=== PATIENT | female | born 1975 | race Caucasian/White ===

== ENCOUNTER → 2018-06-17 | Outpatient (CLI) | payer OTHER ==
[2018-06-17 11:54] LABS: Basophils % (A) 1 %; Eosinophils # (A) 0.1 k/uL (0-0.7); Eosinophils % (A) 1 %; HCT 38.7 % (34.0-46.0); HGB 11.9 gm/dL (11.4-16.0); Hypochromasia Moderate; Lymphocytes # (A) 1.5 k/uL (1.0-4.8); Lymphocytes % (A) 27 %; MCHC 30.8 g/dL (31.0-37.0); MCV 68.2 fL (80.0-100.0); Mean Platelet Volume 6.7; Microcytosis Marked; Monocytes # (A) 0.2 k/uL (0-1.0); Monocytes % (A) 4 %; Neutrophils # (A) 3.6 k/uL (1.3-7.7); Neutrophils % (A) 65 %; Platelet Count 254 k/uL (150-450); RBC 5.67 m/uL (3.80-5.40); RDW 15.5 % (11.5-15.5); WBC 5.6 k/uL (3.8-10.6)
[2018-06-17 12:26] LABS: Anion Gap 6 mmol/L; Blood Urea Nitrogen 9 mg/dL (7-17); Carbon Dioxide 27 mmol/L (22-30); Chloride 106 mmol/L (98-107); Glucose 96 mg/dL (74-99); Potassium 4.5 mmol/L (3.5-5.1); Sodium 139 mmol/L (137-145)
== END | disposition home or self-care (01) ==
LOC: LABPAT 10:57
PROVIDERS: ATTEND Obstetrics & Gynecology
DX: Z01.812 Encounter for preprocedural laboratory examination (principal); R19.00 Intra-abdominal and pelvic swelling, mass and lump, unspecified site; N92.0 Excessive and frequent menstruation with regular cycle
CPT/HCPCS: 36415; 80051; 82565; 82947; 84520; 85025; 87086

== ENCOUNTER 2018-06-27 06:03 | Day surgery (SDC) | payer OTHER ==
--- NOTE | 2018-06-23 17:17 | HP ---
HISTORY AND PHYSICAL DATE OF SURGERY: 06/27/2016 HISTORY OF PRESENT ILLNESS: The patient is a 42-year-old 3, para 3-0-0-3, who initially presented to the office with a complaint of some fairly long-standing hip and low back pain. She underwent a pelvic exam, at which time her pain was thought to be secondary to an enlarged fibroid uterus. Subsequent pelvic ultrasound demonstrated relatively normal- sized uterus with a roughly 10+ cm simple pelvic cyst filling the entire cul-de-sac behind the uterus. She then underwent MALACHI testing to determine whether there was any risk for malignancy. The testing returned with low risk for malignancy. The architecture on ultrasound was of an entirely simple cyst, with no evidence of any complex components. Given its architecture and negative testing, I am anticipating either a very large paratubal cyst or a simple serous cystadenoma. Regardless, the recommendation has been to have it removed based upon size alone. She also at that time had reported increasingly heavy cycles which are becoming closer together as well, roughly 23 days apart, with bleeding heavy enough to bleed through protection on a regular basis. She does have a tubal ligation in place. We discussed multiple different potential options for treatment, and she has elected to have the least invasive with Da Edy laparoscopic removal of the pelvic mass and diagnostic hysteroscopy with NovaSure endometrial ablation. PAST MEDICAL HISTORY: Significant only for an occasional history of anemia. PAST SURGICAL HISTORY: Significant for a history of appendectomy as well as section x1. She has had no anesthetic concerns. OBSTETRICAL HISTORY: 3, para 3-0-0-3, with two term vaginal deliveries and one section. Method of contraception is tubal ligation. GYNECOLOGIC HISTORY: Unremarkable, with no history of any infections to include STDs. FAMILY HISTORY: Noncontributory. SOCIAL HISTORY: The patient is and is a smoker. She reports occasional alcohol and denies any other social concerns. CURRENT MEDICATIONS: Include Celexa 20 mg daily. ALLERGIES: NO KNOWN DRUG ALLERGIES. REVIEW OF SYSTEMS: Confined to history of present illness. PHYSICAL EXAMINATION: Vital signs are stable. The patient is afebrile. In general, this is a well- developed, mild to moderately obese white female in no acute distress. HEENT demonstrates PERRLA, EOMI. Her oropharynx is clear. NECK: Supple without adenopathy. The thyroid is normal to palpation. Her heart has a regular rhythm and rate without murmur. Her lungs are clear to auscultation bilaterally in all dias. Her back is without spinal or CVA tenderness. Her abdomen is nondistended, has normoactive bowel sounds. It is soft, nontender hepatosplenomegaly or hernias. Her extremities are without any cyanosis, clubbing or edema and are nontender to palpation bilaterally. Pelvic examination demonstrates normal external genitalia and BUS with normal vaginal mucosa and cervix. There is no cervical motion tenderness. Uterus is approximately 5 weeks in size, mid plane, mobile and otherwise normal in shape. Endometrial biopsy performed demonstrates benign pathology and the uterus sounded to 8 cm. The entire area posterior to the uterus is filled with a soft cystic structure and the adnexa are essentially nonpalpable as result. ASSESSMENT AND PLAN: 1. A 10 cm simple pelvic cyst. This may represent either a large paratubal cyst or a serous cystadenoma. In either case, all testing and architecture appear to be benign. We have discussed options for removal and opted to proceed with Da Edy laparoscopic excision. It will likely be placed in a bag and then drained or simply drained prior to removal, depending on its appearance. We did discuss the risks and complications of the procedure to include risks for bleeding, bleeding requiring transfusion, infection, and injury to local structures to specifically include the bowel, bladder and ureters, with specific attention paid to the ureters, as the mass fills the cul-de-sac. We then went on to discuss the secondary procedure, which will be listed below. 2. Menorrhagia. The patient has requested diagnostic hysteroscopy with NovaSure endometrial ablation. The risks and complications of this procedure have also been thoroughly discussed, to include the risk for bleeding, transfusion, and injury to local structures, which specifically include the possibility of uterine perforation, Asherman syndrome and subsequent hematometra. She has understood all this and has agreed to proceed. We will carry out the above procedures on the morning of June 27, 2018. The patient also understands that there is the outside possibility of laparotomy, should the pelvic mass require that approach. MMODL / IJN: [id number] /
[~2018-06-27 06:03] MED LIST: DEXAMETHASONE SOD PHOSPHATE 10 MG/ML 1 ML VIAL IV ONE; LACTATED RINGERS 1,000 ML IV SCH; LIDOCAINE 1% 20 ML VIAL (10MG/ML) FOR IV START INTRADERMA PRN; ONDANSETRON 4 MG/2 ML VIAL IVP ONE; SCOPOLAMINE 1.5MG/72HR PATCH TRANSDERM ONE; ceFAZolin IN SWFI 2 GM/20 ML SYRINGE IVP ONE
[2018-06-27] MEDS: LACTATED RINGERS 1,000 ML IV SCH ×3 (06:31→17:36)
[2018-06-27] MEDS ORDERED: fentaNYL (PF) 50 MCG/ML 2 ML AMP ONE (07:44)
[2018-06-27] MEDS ORDERED: LIDOCAINE 1% INJ 10MG/ML (20 ML MDV) ONE (07:44)
[2018-06-27] MEDS ORDERED: GLYCOPYRROLATE 0.2 MG/ML 2 ML VIAL ONE (07:44)
[2018-06-27] MEDS ORDERED: PROPOFOL 10 MG/ML 20 ML VIAL IV ONE (07:44)
[2018-06-27] MEDS ORDERED: NEOSTIGMINE 1 MG/ML 10 ML VIAL ONE (07:44)
[2018-06-27] MEDS ORDERED: MIDAZOLAM 2 MG/2 ML VIAL ONE (07:44)
[2018-06-27] MEDS ORDERED: VECURONIUM 10 MG VIAL IV ONE (07:44)
[2018-06-27] MEDS ORDERED: ROPIVACAINE 5MG/ML 20ML VIAL MISCELLANE ONE ×2 (08:08→09:40)
[2018-06-27] MEDS ORDERED: METOCLOPRAMIDE 5 MG/ML 2 ML VIAL IVP PRN (09:53)
[2018-06-27] MEDS ORDERED: ONDANSETRON 4 MG/2 ML VIAL IVP PRN (09:53)
[2018-06-27] MEDS ORDERED: diphenhydrAMINE 50 MG/ML 1 ML VIAL IVP PRN (09:53)
[2018-06-27] MEDS ORDERED: Acetaminophen-Codeine 300-30mg TAB PO PRN (09:53)
[2018-06-27] MEDS ORDERED: SIMETHICONE 80 MG CHEWABLE PO PRN (09:53)
[2018-06-27] MEDS ORDERED: IBUPROFEN 600 MG TAB PO PRN (09:53)
[2018-06-27] MEDS: KETOROLAC 30 MG/ML 1 ML VIAL IVP PRN ×3 (10:12→21:49)
--- NOTE | 2018-06-27 10:14 | P.OP ---
Date of Procedure: 06/27/18 Preoperative Diagnosis: #1. Approximately 10 cm left pelvic cystic mass #2. Menorrhagia Postoperative Diagnosis: Same plus #3. Incisional hernia #4. Dense pelvic adhesions Procedure(s) Performed: #1. Diagnostic and operative laparoscopy #2. Extensive da Edy robotically assisted adhesiolysis #3. Da Edy robotically assisted left salpingo- oophorectomy #4. Intraoperative general surgery consultation #5. Diagnostic cystoscopy #6. Diagnostic hysteroscopy #7. NovaSure endometrial ablation Anesthesia: NELAA Surgeon: Navin Ely Human Resources Team Member #1: Jaci Cole Estimated Blood Loss (ml): 20 IV fluids (ml): 350 Urine output (ml): 150 Pathology: other (Left tube and ovary) Condition: stable Disposition: PACU Operative Findings: Preoperative pelvic examination demonstrated a roughly 5 week size uterus with a firm mass above and behind the uterus which were felt to be mobile together. Intraoperatively, the pelvic mass was noted to be the entire left ovary which was densely adherent into the left pelvic sidewall and sigmoid colon. Uterus was essentially normal with a roughly 2 cm posterior fundal fibroid. The right tube and ovary were essentially normal although there was some adhesions present likely from tubal ligation. The sigmoid was safely dissected from the ovary with the assistance of Dr. Cantu who also reduced the incisional hernia which appeared to be from the previous section. The remainder of the dissection from the pelvic sidewall and some of the sigmoid dissection was carried out by myself. The postprocedural cystoscopy demonstrated bilateral ureteral function. Using the hysteroscope, the bilateral tubal ostia regions were seen and there was no apparent pathology. The uterus sounded to 9 cm while the cervix was 3.5 cm in length. The settings for the NovaSure tool where a length of 5.5 cm, a width of 4.6 cm, and a total power 139 W. Following the procedure which ran for 80 seconds, the base unit read procedure complete. The postprocedural result appeared to be excellent. The patient is a relatively poor candidate for vaginal hysterectomy should it become necessary. She would likely be best a candidate for da Edy approach. Description of Procedure: The patient was prepped and draped in usual fashion after general endotracheal anesthesia was administered by the anesthesiologist. A weighted speculum was placed in the anterior lip of cervix grasped with single-tooth tenaculum. Uterus and cervix are sounded to 9 cm and 3.5 cm respectively. Serial dilation was carried out to admit a kroner uterine manipulator. The bladder was then catheterized with a Muhammad catheter. Attention was turned to the abdomen where a site was selected approximately 3-4 cm above the umbilicus in the midline where an 8 mm incision was made in the transverse plane allowing insertion of a 5 mm optical trocar under direct visualization without difficulty. A pneumoperitoneum was established and the findings were as noted above. A site was selected approximately 10-12 cm lateral to the optical trocar and 4-5 cm beneath it in the right lower quadrant where an 8 mm incision was made in the transverse plane allowing insertion of a 8mm da Edy port under direct vision station without difficulty. A similar was placed in the left lower quadrant. The site between the left lower quadrant port in the midline port was equally divided and a site selected approximately 3-4 cm above the midline port where a 10 mm incision was made in the transverse plane allowing insertion of an optical 10 mm port under direct visualization without difficulty. The scope was switched to a lateral port and the 5 mm optical port removed in favor of an 8 mm da Edy optical port. The robot was then docked to the patient without di fficulty. A monopolar cautery scissors was placed in the right arm while a male and bipolar cautery forceps was placed in the left arm. I then presented to the console and began to take down adhesions from the omentum to the anterior abdominal wall which was later determined to be at the site of the previous incision. After moderate amount of dissection and been carried out, the decision was made to ask for general surgical consultation, particularly as the large left ovary was noted to be densely adherent to the sigmoid colon. Dissection was begun on the left ovary above the sigmoid colon were filmy adhesions were noted and a plane was relatively easily developed. The decision was made to open the cyst and drain it has appeared completely benign. A small incision was made with the monopolar scissors allowing insertion of a suction radiotelegraph operator servicer to remove what appeared to be approximately 600 mL of straw-colored fluid which was clear. Manipulation was then much more possible and the previously developed planes were continued. Gen. surgery then arrived in the operating room and further carried out dissection of the omental adhesion which was then identified as an incisional hernia. The then further carried out development of the plane previously started to safely remove the ovarian mass from the sigmoid colon. Once finished to return to the control to vt at which time continued dissection bluntly and sharply was carried out to an entirely remove the tubo-ovarian complex from the left pelvic sidewall. The infundibulopelvic ligament was identified along the way and cauterized as it entered the ovary, then divided. The tubo-ovarian ligament was then identified and cauterized allowing it to be divided and the specimen placed into a laparoscopic collection bag. The specimen was then removed from the patient. Examination of all the surgical beds demonstrated adequate hemostasis after thorough suction irrigation. The remainder of the findings as noted above. The robot was then undocked and the ports removed from the patient. The skin incisions were closed with interrupted subcuticular stitches of 4-0 Vicryl followed by half-inch Steri-Strips. A total of 10 mm of 1% ropivacaine was equally divided among the 4 incisions. Attention was returned to the vagina where the Muhammad catheter was removed and the anterior lip of the cervix regrasped with a single-tooth tenaculum. Serial dilation was carried out to admit the diagnostic scope with findings as noted above. The bilateral tubal ostia areas were seen and there was no apparent pathology. The scope was set aside in favor of the da Edy tool which was placed to the fundus, opened, and seated well. The settings for the da Edy to a length of 5.5 cm, a width of 4.6 cm, and a total power 139 W. The cavity check was attempted and passed without difficulty and the tool was armed. The run was started and, after a run time of 80 seconds, the tool disengaged and the base unit read "procedure complete." The 2 was removed, and discarded. The diagnostic scope replaced within the in vitro cavity demonstrated an excellent result. The patient is a poor candidate for a vaginal approach for hysterectomy. All instrumentation was then removed. Estimated blood loss for the entire case was approximately 20 mL. There were no complications. All sponge, instrument, and needle counts were correct. The patient tolerated the procedure well and proceeded to the recovery room in stable condition.
[2018-06-27] MEDS: HYDROmorphone 0.5 MG/0.5 ML SYRINGE IVP PRN ×2 (10:23→10:32)
--- NOTE | 2018-06-27 10:34 | P.OP ---
Date of Procedure: 06/27/18 Preoperative Diagnosis: Adhesions Incisional hernia Postoperative Diagnosis: Adhesions Incisional hernia Procedure(s) Performed: Laparoscopic robotic-assisted lysis of adhesions Anesthesia: NELAA Surgeon: Elpidio Cantu Estimated Blood Loss (ml): 3 Pathology: none sent Condition: stable Disposition: PACU Indications for Procedure: The patient was scheduled by Dr. Kan for a left nephrectomy. Dr. Kan found significant adhesions and contacted me for operative help in lysis of adhesions. Description of Procedure: The patient had already been anesthetized and had trochars placed by Dr. Kan. Dr. Ely noted significant adhesions between the left ovarian cysts and the sigmoid colon as well as adhesions which were incarcerated within an incisional hernia. Dr. Ely required assistance in lysing adhesions in order to perform the left oophorectomy Using the bipolar metastases months scissors and short retraction the adhesions to the incisional hernia were lysed and the omentum was reduced. Next the left ovarian cyst was retracted anteriorly. The cyst was dissected with sharp dissection away from the sigmoid colon. The Metzenbaum scissors were used to dissect the cyst off of the sigmoid colon. There is no evidence of any injury to the sigmoid colon. At this point the console was given back to Dr. Ely to complete his portion of the surgery. Please see Dr. Kan's dictation for the remainder of the procedure.
[2018-06-27] MEDS: Acetaminophen-Codeine 300-30mg TAB PO PRN ×2 (11:25→17:32)
[2018-06-27] MEDS: SENNOSIDES-DOCUSATE SODIUM 1 EACH TAB PO SCH (21:48)
[2018-06-28] MEDS: Acetaminophen-Codeine 300-30mg TAB PO PRN ×2 (00:06→08:21)
[2018-06-28] MEDS: KETOROLAC 30 MG/ML 1 ML VIAL IVP PRN (05:26)
[2018-06-28] MEDS: LACTATED RINGERS 1,000 ML IV SCH ×2 (05:26→08:23)
[2018-06-28 07:40] VITALS: BP 126/70; PULSE 74; RESP 18; TEMP 97.6
[2018-06-28] MEDS: SENNOSIDES-DOCUSATE SODIUM 1 EACH TAB PO SCH (08:20)
[2018-06-28 09:05] LABS: Basophils % (A) 0 %; Eosinophils # (A) 0.1 k/uL (0-0.7); Eosinophils % (A) 1 %; HCT 32.3 % (34.0-46.0); HGB 10.1 gm/dL (11.4-16.0); Hypochromasia Marked; Lymphocytes # (A) 2.5 k/uL (1.0-4.8); Lymphocytes % (A) 28 %; MCH 21.3 pg (25.0-35.0); MCHC 31.2 g/dL (31.0-37.0); MCV 68.2 fL (80.0-100.0); Mean Platelet Volume 6.9; Microcytosis Marked; Monocytes # (A) 0.5 k/uL (0-1.0); Monocytes % (A) 5 %; Neutrophils # (A) 5.8 k/uL (1.3-7.7); Neutrophils % (A) 64 %; Platelet Count 212 k/uL (150-450); RBC 4.74 m/uL (3.80-5.40); RDW 15.6 % (11.5-15.5)
--- NOTE | 2018-06-28 09:09 | P.DS ---
Providers Expected date of discharge: 06/28/18 Attending physician: Navin Ely Primary care physician: Ely Najera - Discharge Diagnosis(es) (1) Pelvic adhesive disease Current Visit: Yes Status: Acute (2) Pelvic mass Current Visit: Yes Status: Acute Hospital Course: The patient is a 42-year-old 3 para 30-3 who was found in the office to have a 10 cm simple appearing left pelvic cystic mass most likely originating in the left ovary. She had ongoing abdominal pain as result as well as some back p ain and hip pain. Additionally she complained of menorrhagia. After discussion of all the findings and options for treatment, she opted to undergo a da Edy robotically assisted laparoscopic removal of the mass and any indicated surgery as well as hysteroscopy with NovaSure endometrial ablation. She was taken the operating room where these procedures were carried out without complication though she was found to have the left ovarian mass densely adherent to the pelvic sidewall and sigmoid colon prompting consultation with general surgery to help remove the mass from the colon. Additionally she was discovered intraoperatively to have a incisional hernia to the anterior abdominal wall involving the left portion of the previous section scar. General surgery also took down most of these adhesions. Given the degree of manipulation and the dissection around the sigmoid colon, the decision was made to keep the patient in the hospital overnight for observation. Postoperatively, she has been entirely stable with her vital signs remaining stable and her temperature afebrile throughout. She reported tolerance of regular diet as well as flatus this morning. Her only discomfort was at her incision sites. As result, she was deemed stable for discharge and was discharged home to follow-up in the office in 2 weeks' time routinely. Instructions included calling for any increased pain, fever, incisional problems, GI concerns, or anything else that concerned her. She was additionally instructed to do no driving until off of all pain medications or 2 weeks' time, whichever came first. She understood her instructions and agrees follow up as noted above. Discharge medications included any home medications as well as a prescription for Tylenol 3, 1-2 by mouth every 6 hours when necessary pain, #20 dispensed with no refills. Discharge hemoglobin and hematocrit are pending at the time of this dictation. Procedures: #1. Diagnostic and operative laparoscopy #2. Da Edy robotically assisted adhesio lysis #3. Da Edy robotically assisted left salpingo-oophorectomy #4. Intraoperative general surgery consultation #5. Diagnostic cystoscopy #6. Diagnostic hysteroscopy #7. NovaSure endometrial ablation Patient Condition at Discharge: Stable Plan - Discharge Summary Discharge Rx Participant: No New Discharge Prescriptions: No Action Citalopram Hydrobromide [CeleXA] 20 mg PO QAM Ibuprofen [Motrin] 600 mg PO DAILY PRN PRN Reason: Pain Discharge Medication List Citalopram Hydrobromide [CeleXA] 20 mg PO QAM 06/24/18 [History] Ibuprofen [Motrin] 600 mg PO DAILY PRN 06/24/18 [History] Follow up Appointment(s)/Referral(s): Elpidio Cantu MD [STAFF PHYSICIAN] - 1 Week Navin Ely MD [STAFF PHYSICIAN] - 2 Weeks Discharge Disposition: HOME SELF-CARE
== END 2018-06-28 10:34 | disposition home or self-care (01) ==
LOC: OR 06:03 → 6PED 09:58 → OR 06-28 10:34
PROVIDERS: ATTEND Obstetrics & Gynecology
DX: D27.1 Benign neoplasm of left ovary (principal); N92.0 Excessive and frequent menstruation with regular cycle; K43.2 Incisional hernia without obstruction or gangrene; N73.6 Female pelvic peritoneal adhesions (postinfective); F17.200 Nicotine dependence, unspecified, uncomplicated; Z79.899 Other long term (current) drug therapy
CPT/HCPCS: 58661; 58563; 81025; 85025; 88307; J2250; J1100; J2710; J2405; J2001; J3010; J1885 ×2; J2704; J1170; J0690; J2795; 86850; 86900; 86901